=== PATIENT | male | born 1985 | race Caucasian/White ===

== ENCOUNTER 2020-07-11 16:02 | Inpatient (IN) | payer BC, OTHER ==
[2020-07-11] MEDS ORDERED: SODIUM CHLORIDE 0.9% 500 ML INFUS.BAG IV ONE (17:10)
[2020-07-11] MEDS ORDERED: PSEUDOEPHEDRINE HCL 30 MG TABLET PO ONE (17:11)
[2020-07-11] MEDS ORDERED: DEXAMETHASONE SOD PHOSPHATE 10 MG/1 ML VIAL IVPUSH ONE (17:11)
[2020-07-11 17:30] LABS: BASO % 0.4 % (0-2.0); LYMPH % 15.5 % (8-40); MCH 29.7 pg (25.7-33.7); MCHC 35.9 g/dl (32.0-35.9); MEAN PLT VOLUME 8.9 fl (7.5-11.1); MONO % 10.5 % (3.8-10.2); NEUT % 73.6 % (42.8-82.8); PLATELET COUNT 250 K/MM3 (134-434); RDW 12.9 % (11.9-15.9); WHITE BLOOD COUNT 6.6 K/mm3 (4.0-10.0)
[2020-07-11 17:39] LABS: INR 1.39 (0.83-1.09); PROTHROMBIN TIME (PATIENT) 16.9 SEC (9.7-13.0)
[2020-07-11] MEDS ORDERED: ALBUTEROL SO4 HFA INHALER IH ONE ×2 (17:50→18:08)
[2020-07-11 17:51] LABS: POTASSIUM 3.6 mmol/L (3.5-5.1)
[2020-07-11] MEDS ORDERED: AZITHROMYCIN IVPB 500 MG in DEXTROSE 5%-WATER - 250 ML IVPB ONE (17:51)
[2020-07-11 17:54] LABS: CALCIUM 8.2 mg/dL (8.5-10.1)
[2020-07-11 17:55] LABS: ALBUMIN 3.4 g/dl (3.4-5.0); BLOOD UREA NITROGEN 10.1 mg/dL (7-18)
[2020-07-11 17:56] LABS: BILIRUBIN,DIRECT 0.3 mg/dL (0.0-0.2)
[2020-07-11 17:59] LABS: BILIRUBIN,TOTAL 1.1 mg/dL (0.2-1); TOT PROT 7.4 g/dl (6.4-8.2)
[2020-07-11] MEDS ORDERED: DEXAMETHASONE SOD PHOSPHATE 10 MG/1 ML VIAL ONE (18:00)
[2020-07-11] MEDS ORDERED: CEFTRIAXONE 1 GM/50 ML BAG ONE (18:01)
[2020-07-11] MEDS ORDERED: AZITHROMYCIN IVPB 500 MG/250 ML BAG IVPB ONE (18:01)
[2020-07-11] MEDS ORDERED: ENOXAPARIN NA (PORCINE) 40 MG/0.4 ML DISP.SYRIN SQ ONE ×2 (18:29→19:01)
[2020-07-11] MEDS ORDERED: PSEUDOEPHEDRINE HCL 60 MG TABLET PO ONE (19:01)
[2020-07-11] MEDS ORDERED: PSEUDOEPHEDRINE HCL 60 MG TABLET ONE (19:01)
[2020-07-11] MEDS ORDERED: SODIUM CHLORIDE 1,000 ML IV SCH (20:15)
[2020-07-11 21:01] LABS: URINE APPEARANCE CLOUDY; URINE BILIRUBIN NEGATIVE (NEGATIVE); URINE COLOR YELLOW; URINE GLUCOSE (UA) NEGATIVE (NEGATIVE); URINE KETONE NEGATIVE (NEGATIVE); URINE LEUK ESTERASE NEGATIVE (NEGATIVE); URINE NITRITE NEGATIVE (NEGATIVE); URINE PROTEIN TRACE (NEGATIVE)
[2020-07-11] MEDS ORDERED: ENOXAPARIN NA (PORCINE) 40 MG/0.4 ML DISP.SYRIN SQ SCH (22:00)
[2020-07-11] MEDS ORDERED: ASCORBIC ACID 500 MG TABLET (FP) ONE (23:24)
[2020-07-11] MEDS ORDERED: FAMOTIDINE 20 MG TABLET ONE (23:24)
[2020-07-11] MEDS: ASCORBIC ACID 500 MG TABLET (FP) PO SCH (23:31)
[2020-07-11] MEDS: FAMOTIDINE 20 MG TABLET PO SCH (23:31)
[2020-07-12] MEDS ORDERED: guaiFENesin/CODEINE 10 ML UNIT-DOSE CUPS PO ONE (02:25)
[2020-07-12] MEDS ORDERED: guaiFENesin/D-METHORPHAN HB 10 ML UNIT-DOSE CUPS PO ONE (02:27)
[2020-07-12] MEDS ORDERED: guaiFENesin/D-METHORPHAN HB 10 ML UNIT-DOSE CUPS ONE (02:29)
[2020-07-12 08:03] LABS: BASO % 0.2 % (0-2.0); HEMATOCRIT 38.1 % (35.4-49); HEMOGLOBIN 13.7 GM/dL (11.7-16.9); LYMPH % 18.3 % (8-40); MCHC 35.9 g/dl (32.0-35.9); MEAN CELL VOLUME 83.5 fl (80-96); MEAN PLT VOLUME 8.7 fl (7.5-11.1); MONO % 7.9 % (3.8-10.2); NEUT % 73.6 % (42.8-82.8); PLATELET COUNT 260 K/MM3 (134-434); RBC 4.56 M/mm3 (4.00-5.60); RDW 12.8 % (11.9-15.9); WHITE BLOOD COUNT 5.1 K/mm3 (4.0-10.0)
[2020-07-12 08:13] LABS: POTASSIUM 3.7 mmol/L (3.5-5.1)
[2020-07-12 08:23] LABS: ALBUMIN 3.2 g/dl (3.4-5.0); BLOOD UREA NITROGEN 12.6 mg/dL (7-18); CALCIUM 8.4 mg/dL (8.5-10.1); MAGNESIUM 2.4 mg/dL (1.8-2.4)
[2020-07-12 08:25] LABS: CREATININE 0.9 mg/dL (0.55-1.3); PHOSPHOROUS 3.3 mg/dL (2.5-4.9)
[2020-07-12 08:26] LABS: INR 1.26 (0.83-1.09); PROTHROMBIN TIME (PATIENT) 15.1 SEC (9.7-13.0); TOT PROT 7.3 g/dl (6.4-8.2)
[2020-07-12] MEDS ORDERED: ENOXAPARIN NA (PORCINE) 40 MG/0.4 ML DISP.SYRIN SQ SCH (10:00)
[2020-07-12] MEDS: CHOLECALCIFEROL (VIT D3) 1,000 UNIT (25 MCG) TABLET PO SCH (11:03)
[2020-07-12] MEDS: ASCORBIC ACID 500 MG TABLET (FP) PO SCH ×2 (11:03→21:17)
[2020-07-12] MEDS: FAMOTIDINE 20 MG TABLET PO SCH ×2 (11:04→21:17)
[2020-07-12] MEDS: DEXAMETHASONE SOD PHOSPHATE 4 MG/1 ML VIAL IVPUSH SCH (11:04)
[2020-07-12] MEDS: ZINC SULFATE 220 MG CAPSULE (FP) PO SCH (13:33)
[2020-07-12] MEDS: APIXABAN 5 MG TABLET PO SCH ×2 (13:44→21:17)
[2020-07-12] MEDS ORDERED: REMDESIVIR 200 MG in SODIUM CHLORIDE 210 ML IVPB ONE (14:00)
[2020-07-13 08:54] LABS: BASO % 0.1 % (0-2.0); EOS % 0.1 % (0-4.5); HEMATOCRIT 37.2 % (35.4-49); HEMOGLOBIN 13.1 GM/dL (11.7-16.9); LYMPH % 15.1 % (8-40); MCH 29.4 pg (25.7-33.7); MCHC 35.1 g/dl (32.0-35.9); MEAN CELL VOLUME 83.7 fl (80-96); MEAN PLT VOLUME 8.5 fl (7.5-11.1); NEUT % 74.7 % (42.8-82.8); PLATELET COUNT 278 K/MM3 (134-434); RBC 4.44 M/mm3 (4.00-5.60); RDW 12.8 % (11.9-15.9); WHITE BLOOD COUNT 9.4 K/mm3 (4.0-10.0)
[2020-07-13] MEDS: ZINC SULFATE 220 MG CAPSULE (FP) PO SCH (09:04)
[2020-07-13] MEDS: ASCORBIC ACID 500 MG TABLET (FP) PO SCH ×2 (09:04→21:57)
[2020-07-13] MEDS: FAMOTIDINE 20 MG TABLET PO SCH ×2 (09:04→21:57)
[2020-07-13] MEDS: CHOLECALCIFEROL (VIT D3) 1,000 UNIT (25 MCG) TABLET PO SCH (09:04)
[2020-07-13] MEDS: APIXABAN 5 MG TABLET PO SCH ×2 (09:04→21:57)
[2020-07-13] MEDS: DEXAMETHASONE SOD PHOSPHATE 4 MG/1 ML VIAL IVPUSH SCH (09:05)
[2020-07-13 10:24] LABS: POTASSIUM 3.4 mmol/L (3.5-5.1)
[2020-07-13 10:26] LABS: BLOOD UREA NITROGEN 16.3 mg/dL (7-18); CALCIUM 8.2 mg/dL (8.5-10.1); MAGNESIUM 2.4 mg/dL (1.8-2.4)
[2020-07-13] MEDS ORDERED: POTASSIUM CHLORIDE TABS 20 MEQ TABLET.ER (FP) PO ONE (10:26)
[2020-07-13 10:29] LABS: CREATININE 0.8 mg/dL (0.55-1.3)
[2020-07-13 10:30] LABS: PHOSPHOROUS 4.1 mg/dL (2.5-4.9)
[2020-07-13 10:31] LABS: BILIRUBIN,TOTAL 0.4 mg/dL (0.2-1); TOT PROT 6.6 g/dl (6.4-8.2)
[2020-07-13] MEDS: guaiFENesin/CODEINE 10 ML UNIT-DOSE CUPS PO PRN ×2 (11:11→21:57)
[2020-07-13 12:39] LABS: ERYTHROCYTE SEDIMENTATION RATE 44 mm/hr (0-10)
[2020-07-13] MEDS: REMDESIVIR 100 MG in SODIUM CHLORIDE 230 ML IVPB SCH (14:27)
[2020-07-14] MEDS: guaiFENesin/CODEINE 10 ML UNIT-DOSE CUPS PO PRN ×2 (08:31→21:58)
[2020-07-14] MEDS ORDERED: POTASSIUM CHLORIDE TABS 20 MEQ TABLET.ER (FP) PO ONE (09:37)
[2020-07-14] MEDS: DEXAMETHASONE SOD PHOSPHATE 4 MG/1 ML VIAL IVPUSH SCH (10:13)
[2020-07-14] MEDS: APIXABAN 5 MG TABLET PO SCH ×2 (10:13→21:58)
[2020-07-14] MEDS: FAMOTIDINE 20 MG TABLET PO SCH ×2 (10:13→21:58)
[2020-07-14] MEDS: ASCORBIC ACID 500 MG TABLET (FP) PO SCH ×2 (10:13→21:58)
[2020-07-14] MEDS: CHOLECALCIFEROL (VIT D3) 1,000 UNIT (25 MCG) TABLET PO SCH (10:13)
[2020-07-14] MEDS: ZINC SULFATE 220 MG CAPSULE (FP) PO SCH (10:13)
[2020-07-14 10:27] LABS: BASO % 0.2 % (0-2.0); EOS % 0.1 % (0-4.5); HEMATOCRIT 39.6 % (35.4-49); HEMOGLOBIN 13.9 GM/dL (11.7-16.9); LYMPH % 22.7 % (8-40); MCH 30.1 pg (25.7-33.7); MCHC 35.1 g/dl (32.0-35.9); MEAN CELL VOLUME 85.6 fl (80-96); MEAN PLT VOLUME 8.7 fl (7.5-11.1); MONO % 12.2 % (3.8-10.2); NEUT % 64.8 % (42.8-82.8); PLATELET COUNT 312 K/MM3 (134-434); RBC 4.62 M/mm3 (4.00-5.60); WHITE BLOOD COUNT 9.6 K/mm3 (4.0-10.0)
[2020-07-14 10:42] LABS: POTASSIUM 3.9 mmol/L (3.5-5.1)
[2020-07-14 10:48] LABS: ALBUMIN 3.2 g/dl (3.4-5.0); BLOOD UREA NITROGEN 18.9 mg/dL (7-18)
[2020-07-14 10:49] LABS: CALCIUM 8.3 mg/dL (8.5-10.1); MAGNESIUM 2.2 mg/dL (1.8-2.4)
[2020-07-14 10:51] LABS: PHOSPHOROUS 4.1 mg/dL (2.5-4.9)
[2020-07-14 10:53] LABS: BILIRUBIN,TOTAL 0.6 mg/dL (0.2-1)
[2020-07-14 11:21] LABS: ERYTHROCYTE SEDIMENTATION RATE 38 mm/hr (0-10)
[2020-07-14] MEDS: REMDESIVIR 100 MG in SODIUM CHLORIDE 230 ML IVPB SCH (14:23)
[2020-07-14] MEDS ORDERED: ALBUTEROL SO4 HFA INHALER IH PRN (14:53)
[2020-07-15 08:45] LABS: BASO % 0.2 % (0-2.0); EOS % 0.4 % (0-4.5); HEMATOCRIT 39.8 % (35.4-49); HEMOGLOBIN 13.9 GM/dL (11.7-16.9); LYMPH % 24.5 % (8-40); MCH 29.8 pg (25.7-33.7); MEAN CELL VOLUME 84.9 fl (80-96); MEAN PLT VOLUME 8.7 fl (7.5-11.1); MONO % 10.6 % (3.8-10.2); NEUT % 64.3 % (42.8-82.8); PLATELET COUNT 324 K/MM3 (134-434); RBC 4.69 M/mm3 (4.00-5.60); RDW 13.1 % (11.9-15.9); WHITE BLOOD COUNT 9.2 K/mm3 (4.0-10.0)
[2020-07-15] MEDS: guaiFENesin/CODEINE 10 ML UNIT-DOSE CUPS PO PRN ×2 (08:45→20:45)
[2020-07-15 09:05] LABS: POTASSIUM 3.9 mmol/L (3.5-5.1)
[2020-07-15 09:11] LABS: BLOOD UREA NITROGEN 18.3 mg/dL (7-18)
[2020-07-15 09:12] LABS: ALBUMIN 3.2 g/dl (3.4-5.0); CALCIUM 8.4 mg/dL (8.5-10.1)
[2020-07-15 09:15] LABS: CREATININE 0.9 mg/dL (0.55-1.3)
[2020-07-15 09:17] LABS: BILIRUBIN,TOTAL 0.6 mg/dL (0.2-1); TOT PROT 6.8 g/dl (6.4-8.2)
[2020-07-15] MEDS: ASCORBIC ACID 500 MG TABLET (FP) PO SCH ×2 (10:04→21:53)
[2020-07-15] MEDS: FAMOTIDINE 20 MG TABLET PO SCH ×2 (10:04→21:53)
[2020-07-15] MEDS: ZINC SULFATE 220 MG CAPSULE (FP) PO SCH (10:05)
[2020-07-15] MEDS: DEXAMETHASONE SOD PHOSPHATE 4 MG/1 ML VIAL IVPUSH SCH (10:05)
[2020-07-15] MEDS: CHOLECALCIFEROL (VIT D3) 1,000 UNIT (25 MCG) TABLET PO SCH (10:05)
[2020-07-15] MEDS: APIXABAN 5 MG TABLET PO SCH ×2 (10:05→21:53)
[2020-07-15 11:49] LABS: ANISOCYTOSIS 0; HELMET CELLS 0; HOWELL-JOLLY BODIES 0; MACROCYTOSIS 0; OVALOCYTE 0; PLATELET ESTIMATE NORMAL; ROULEAU 0; SICKELED CELLS 0; TARGET CELLS 0; TEAR DROP CELLS 0; TOXIC GRANULATION 0
[2020-07-15] MEDS: REMDESIVIR 100 MG in SODIUM CHLORIDE 230 ML IVPB SCH (14:03)
[2020-07-15] MEDS ORDERED: guaiFENesin/CODEINE 10 ML UNIT-DOSE CUPS PO ONE (22:30)
[2020-07-16 08:18] LABS: BASO % 0.1 % (0-2.0); EOS % 0.8 % (0-4.5); HEMATOCRIT 40.3 % (35.4-49); HEMOGLOBIN 14.3 GM/dL (11.7-16.9); LYMPH % 22.1 % (8-40); MCH 29.9 pg (25.7-33.7); MCHC 35.4 g/dl (32.0-35.9); MEAN CELL VOLUME 84.5 fl (80-96); MEAN PLT VOLUME 8.1 fl (7.5-11.1); MONO % 8.7 % (3.8-10.2); NEUT % 68.3 % (42.8-82.8); PLATELET COUNT 358 K/MM3 (134-434); RBC 4.77 M/mm3 (4.00-5.60); WHITE BLOOD COUNT 11.8 K/mm3 (4.0-10.0)
[2020-07-16 08:39] LABS: POTASSIUM 4.2 mmol/L (3.5-5.1)
[2020-07-16 08:45] LABS: ALBUMIN 3.3 g/dl (3.4-5.0); BLOOD UREA NITROGEN 19.6 mg/dL (7-18)
[2020-07-16 08:46] LABS: CALCIUM 8.4 mg/dL (8.5-10.1)
[2020-07-16 08:50] LABS: BILIRUBIN,TOTAL 0.6 mg/dL (0.2-1); TOT PROT 6.8 g/dl (6.4-8.2)
[2020-07-16] MEDS: FAMOTIDINE 20 MG TABLET PO SCH (09:12)
[2020-07-16] MEDS: APIXABAN 5 MG TABLET PO SCH (09:12)
[2020-07-16] MEDS: ZINC SULFATE 220 MG CAPSULE (FP) PO SCH (09:12)
[2020-07-16] MEDS: ASCORBIC ACID 500 MG TABLET (FP) PO SCH (09:12)
[2020-07-16] MEDS: CHOLECALCIFEROL (VIT D3) 1,000 UNIT (25 MCG) TABLET PO SCH (09:13)
[2020-07-16] MEDS: DEXAMETHASONE SOD PHOSPHATE 4 MG/1 ML VIAL IVPUSH SCH (09:13)
[2020-07-16 12:06] LABS: ANISOCYTOSIS 1+; MACROCYTOSIS 0; PLATELET ESTIMATE NORMAL
[2020-07-16] MEDS: REMDESIVIR 100 MG in SODIUM CHLORIDE 230 ML IVPB SCH (13:19)
[2020-07-16 16:17] VITALS: BP 126/70; PULSE 85; TEMP 98
== END 2020-07-16 17:58 | disposition home or self-care (01) | DRG 177 ==
LOC: JER 16:02 → JERBED 18:39 → J8W 07-12 03:49
PROVIDERS: ADMIT Hospitalist
PROC: 8E0ZXY6 Isolation (ICD-10-PCS; 2020-07-11)
PROC: XW13325 Transfusion of Convalescent Plasma (Nonautologous) into Peripheral Vein, Percutaneous Approach, New Technology Group 5 (ICD-10-PCS; principal; 2020-07-12)
PROC: XW033E5 Introduction of Remdesivir Anti-infective into Peripheral Vein, Percutaneous Approach, New Technology Group 5 (ICD-10-PCS; 2020-07-12)
DX: U07.1 COVID-19 (principal); J12.89 Other viral pneumonia; J96.01 Acute respiratory failure with hypoxia; E66.9 Obesity, unspecified; Z68.39 Body mass index [BMI] 39.0-39.9, adult
CPT/HCPCS: 36415; 36430; 71045-TC-FY; 80053; 81003; 82248; 82550; 82553; 82728; 83605; 83615; 83735; 84100; 84484; 85025; 85379; 85610; 85651; 85730; 86140; 86769; 86850; 86900; 86901; 87040; 87086; 87804; 87899; 93005; 93010; 94010; 94761; 99285-25; C9399; C9803; J1100; P9017; U0003